=== PATIENT | female | born 1995 | race Caucasian/White ===

== ENCOUNTER 2016-11-05 22:08 | Emergency (ER) | payer OTHER | END 2016-11-05 22:28 | disposition home or self-care (01) | LOC: ER 22:08 | DX: S60.361A Insect bite (nonvenomous) of right thumb, initial encounter (principal); L03.011 Cellulitis of right finger; W57.XXXA Bitten or stung by nonvenomous insect and other nonvenomous arthropods, initial encounter; F17.210 Nicotine dependence, cigarettes, uncomplicated | CPT/HCPCS: 99282 ==